=== PATIENT | female | born 1970 | race Caucasian/White ===

== ENCOUNTER → 2017-04-05 | Outpatient (CLI) | payer BC ==
--- NOTE | 2017-04-05 10:42 | REPMRS ---
Patient History The patient states she had a clinical breast exam in January 2017. Family history of colorectal cancer in maternal grandmother at age 50 or over. Digital Mammo Screening Bilat: April 05, 2017 - Exam #: [id number] Bilateral CC and MLO view(s) were taken. Technologist: Cheryl Stephen, Technologist Prior study comparison: April 02, 2016, bilateral digital mammo screening bilat performed at [facility]. March 19, 2015, bilateral digital mammo screening bilat performed at [facility]. February 06, 2014, bilateral digital mammo screening bilat performed at [facility]. FINDINGS: There are scattered fibroglandular densities. There is a moderate amount of residual fibroglandular tissue which is fairly symmetric. There is no interval development of dominant mass, architectural distortion, or clustered microcalcification typical of malignancy. There has been no change in the appearance of the mammogram from the prior studies. ASSESSMENT: BI-RADS/ACR category 1 mammogram. Negative. Recommendation Routine screening mammogram of both breasts in 1 year (for women over age 40). This mammogram was interpreted with the aid of an FDA-approved computer-aided dectection system. Electronically Signed By: Rishi Cartagena MD 04/05/17 [id number]
== END ==
LOC: M RAD 10:03
PROVIDERS: ATTEND Internal Medicine
DX: Z12.31 Encounter for screening mammogram for malignant neoplasm of breast (principal); Z80.3 Family history of malignant neoplasm of breast

== ENCOUNTER → 2018-04-25 | Outpatient (CLI) | payer BC | LOC: M RAD 08:26 | DX: Z12.31 Encounter for screening mammogram for malignant neoplasm of breast (principal); N60.31 Fibrosclerosis of right breast; N60.32 Fibrosclerosis of left breast | CPT/HCPCS: 77067 ==

== ENCOUNTER → 2018-11-15 | Outpatient (REF) | payer BC ==
[2018-11-18 00:09] LABS: ANTINUCLEAR ANTIBODIES DIRECT Negative (Negative)
== END ==
LOC: M LAB REF 12:42
PROVIDERS: ATTEND Internal Medicine
DX: I73.00 Raynaud's syndrome without gangrene (principal)

== ENCOUNTER → 2019-05-01 | Outpatient (CLI) | payer BC ==
--- NOTE | 2019-05-01 14:04 | REPMRS ---
Patient History The patient states she had a clinical breast exam in 2018. Family history of colorectal cancer at age 50 or over in maternal grandmother. Digital Mammo Screening Bilat: May 01, 2019 - Exam #: [id number] Bilateral CC and MLO view(s) were taken. Technologist: Velma Baker, Technologist Prior study comparison: April 25, 2018, bilateral digital mammo screening bilat performed at [facility]. April 05, 2017, bilateral digital mammo screening bilat performed at [facility]. April 02, 2016, bilateral digital mammo screening bilat performed at [facility]. FINDINGS: The breast tissue is heterogeneously dense. This may lower the sensitivity of mammography. There is a moderate amount of heterogeneously dense fibroglandular tissue which is fairly symmetric. There is no interval development of dominant mass, architectural distortion, or grouped microcalcification typical of malignancy. There has been no change in the appearance of the mammogram from the prior studies. 3-D tomosynthesis shows no additional findings. Assessment: BI-RADS/ACR category 1 mammogram. Negative Mammogram. Recommendation Routine screening mammogram of both breasts in 1 year (for women over age 40). This patient's Lifetime Breast Cancer RIsk is estimated at 10.8 %. This mammogram was interpreted with the aid of an FDA-approved computer-aided dectection system. Electronically Signed By: Rishi Cartagena MD 05/01/19 [id number]
== END ==
LOC: M RAD 11:27
PROVIDERS: ATTEND Internal Medicine
DX: Z12.31 Encounter for screening mammogram for malignant neoplasm of breast (principal)

== ENCOUNTER → 2020-02-18 | Outpatient (CLI) | payer BC ==
--- NOTE | 2020-02-18 13:50 | REP ---
DIAGNOSTIC MAMMOGRAM RIGHT BREAST WITH RIGHT BREAST ULTRASOUND: HISTORY: Palpable lump for 1 month upper outer quadrant right breast. No family history of breast cancer. Tyrer-Cuzick lifetime risk of breast cancer 10/6%. Moderate fibroglandular tissue is again seen in the right breast, with no change in the parenchymal pattern compared to prior studies. There is no new mass or architectural distortion. No clustered microcalcifications are seen. Real-time sonographic evaluation of the right breast performed in the upper outer quadrant posteriorly at the site of the palpable lump. No cystic or solid nodule is seen in this region. IMPRESSION: BIRADS 2: BI-RADS/ACR category 2 mammogram. Benign Findings. ACR 2 benign. Moderate fibroglandular tissue right breast. There is no mammographic evidence of mass and no sonographic evidence of mass at the site of the palpable lump upper outer quadrant right breast. A negative mammogram and ultrasound should not deter biopsy of there is a clinically suspicious palpable mass present. Clinical correlation and followup recommended. Recommend followup bilateral mammogram April 2020. Volpara density score is C. This mammogram was interpreted with the aid of an FDA-approved computer-aided detection system. A. Negative x-ray reports should not delay biopsy if a dominant or clinically suspicious mass is present. B. Four to eight percent of cancers are not identified by x-ray. C. Adenosis and dense breasts may obscure an underlying neoplasm. The patient states she/he had a clinical breast exam in January 2020. The patient letter being requested is M2.
== END ==
LOC: M WHC 10:27
PROVIDERS: ATTEND Internal Medicine
DX: N63.10 Unspecified lump in the right breast, unspecified quadrant (principal)
CPT/HCPCS: 76642; 77065; G0279

== ENCOUNTER → 2020-03-26 | Outpatient (CLI) | payer BC ==
--- NOTE | 2020-03-26 15:34 | REP ---
ULTRASOUND GUIDANCE FOR RIGHT BREAST BIOPSY: Ultrasound guidance provided for Dr. Lugo who performed ultrasound-guided biopsy of the 11-o'clock region of the right breast. Biopsy needle is seen on the images.
--- NOTE | 2020-03-26 15:35 | REP ---
POSTBIOPSY MAMMOGRAM RIGHT BREAST: Postbiopsy mammogram right breast performed in the axillary CC and ML projections, following ultrasound-guided biopsy of the right breast performed by Dr. Lugo. A metallic biopsy clip is seen far posteriorly in the upper outer quadrant of the right breast in the region of the axillary tail.
[2020-03-26 17:04] VITALS: BP 142/80
--- NOTE | 2020-04-06 14:17 | ROOPDOC ---
[facility] Report Of Operation Report of Operation DATE OF PROCEDURE: 03/26/20 PREPROCEDURE DIAGNOSES: Right breast mass and left nipple skin tag POSTPROCEDURE DIAGNOSES: Right breast mass and left nipple skin tag PROCEDURE: Ultrasound-guided biopsy of right breast mass and excisional biopsy of left nipple skin tag SURGEON: Gege Bahena ANESTHESIA: Local ESTIMATED BLOOD LOSS: Approximately 1 mL. COMPLICATIONS: No complications REMARKS: Postbiopsy clips seen in the right breast mammogram at the expected location DESCRIPTION OF PROCEDURE: Lidocaine 1% LOT [id number] Expiration 01/2023 Sodium Bicarbonate 8.4% LOT [id number] Expiration 02/2021 Hydromark clip LOT [id number] Expiration 10/2022 SHAPE 4 Bx device: BARD [id number] x10 cm LOT [id number] Expiration 10/2022 Informed consent was obtained. The most common risk and possible complications including bleeding, hematoma, bruising, infection, injury to surrounding structures were explained to the patient and she expressed understanding. Patient was placed on the bed in the supine position. Appropriate time out was done stating patients name, date of , and the procedure to be performed. Procedure was started with the right breast biopsy. The right breast was prepped and draped in the usual fashion. The palpation was used to confirm location of the lesion at 11:00 between 6.5 and 9 CFN radially located. The location of the lesion was previously confirmed by the patient and marked on the skin prior to cleaning of the breast. The ultrasound was used to monitor trajectory of the biopsy needle and to assure it is away from vital structures like lung. Plain Lidocaine 1% and 8.4% sodium bicarbonate 10:1 mix was used to anesthetize the skin, the biopsy site and tissues along the anticipated biopsy tract. Small skin incision was made with blade number 11. BARD Marquee 14G cannula with introducer ([id number]) was inserted through the incision and advanced under the ultrasound guidance to position immediately adjacent to the lesion. Next, the introducer was removed and BARD Marquee 14G biopsy device was places in the cannula. Pre-biopsy imaging, and post-biopsy imaging were captured. Five good core biopsies were taken at various levels of the lesion. Specimen was placed in formaldehyde, labeled with appropriate biopsy site and patients name, and sent to pathology for evaluation. Next, the biopsy device was withdrawn and a clip introducer was inserted into the biopsy site via the cannula. The SHAPE 4 Hydromark clip was deployed under sonographic guidance. Post-clip placement image was captured. Manual pressure over the biopsy cavity and tract was held after the clip introducer was withdrawn. No bleeding was noted upon removal of the pressure. SteriStips were placed over the incision site. At this point, our attention was shifter toward the left breast and the left nipple skin tag. Left breast was prepped and draped in the usual fashion. Plain Lidocaine 1% and 8.4% sodium bicarbonate 10:1 mix was used to anesthetize the skin at the left nipple skin tag. Blade number 15 was used to excise the left nipple skin tag. Specimen was placed in formaldehyde, labeled with appropriate biopsy site and patients name, and sent to pathology for evaluation. Pressure was held over the excision area as the nipple area is very vascular and some bleeding was noted. After 5 minutes of holding pressure. A bulk dressing was placed over the left nipple excision area and covered with Tegraderm. Next, patient was taken for the post biopsy right breast mammogram. Post-biopsy mammogram of the right breast was obtained and showed clip in expected position. An SONIA wrap was placed over the chest to provide compression to the right breast biopsy site and the left nipple excisional biopsy site. Patient tolerated procedure well. Discharge instructions were discussed with the patient and she expressed understanding. GEGE BAHENA DO Apr 06, 2020 14:01
== END ==
LOC: M WHCPRO 09:50
PROVIDERS: ATTEND Surgery
DX: N63.11 Unspecified lump in the right breast, upper outer quadrant (principal); Q83.9 Congenital malformation of breast, unspecified

== ENCOUNTER → 2020-04-01 | Outpatient (REF) | payer BC ==
[2020-04-01 13:10] LABS: BLOOD UREA NITROGEN 15 MG/DL (7-18); CALCIUM LEVEL 8.9 MG/DL (8.5-10.1); CARBON DIOXIDE LEVEL 30 MEQ/L (21-32); CHLORIDE LEVEL 102 MEQ/L (98-107); CREATININE FOR GFR 0.78 MG/DL (0.55-1.30); GLOMERULAR FILTRATION RATE > 60.0 (>51); GLUCOSE, FASTING 198 MG/DL (70-100); POTASSIUM SERUM 4.4 MEQ/L (3.5-5.1); SODIUM LEVEL 138 MEQ/L (136-145)
== END ==
LOC: M PLALAB 10:24
PROVIDERS: ATTEND Surgery
DX: N63.10 Unspecified lump in the right breast, unspecified quadrant (principal)

== ENCOUNTER → 2020-04-25 | Outpatient (CLI) | payer BC ==
[~2020-04-25] MED LIST: PROHANCE 279.3MG/ML 15ML VIAL As Ordered ONE
--- NOTE | 2020-06-06 11:55 | REP ---
BILATERAL BREAST MRI STUDY WITHOUT AND WITH IV GADOLINIUM HISTORY: Dense breast tissue. Right breast mass. Patient presented with palpable lump of upper-outer quadrant right breast, for which ultrasound-guided needle biopsy was done. Biopsy result was fibrofatty tissue, benign. COMPARISON: Diagnostic mammography dated 03/26/2020 and 02/18/2020, reviewed. Comparison focused upper-outer quadrant right breast sonography 02/18/2020. TECHNIQUE: Gadolinium enhancement dose, 15 mL of intravenous ProHance. MRI FINDINGS: There is a erntjiax-kn-whiofo pattern of fibroglandular tissue bilaterally. This is largely symmetric. There is no evidence of axillary lymphadenopathy. No large breast cystic change is seen. No evidence of internal mammary adenopathy seen. There is a mild pattern of background parenchymal enhancement. On dynamically acquired sequential post-contrast images, there is an irregular, somewhat spiculated-shaped area of contrast enhancement in the 6 o'clock position of the right breast. This is not the area where the patient had recent biopsy. This area shows T2 hyperintensity. It is irregular in shape and approximately 14 mm in greatest diameter. It is felt to correspond with a somewhat nodular area of density in the inferior aspect of the recent right breast mammography. There is a single focal microcalcification within this nodular density on mammography from 03/26/2020. On the computer-aided detection system review, this lesion does not enhance above threshold, but its morphology is considered suspicious. No other area of contrast enhancement and/or wash out is seen in either breast on dynamically acquired post contrast images. No suspicious morphologic abnormality is seen in the upper-outer quadrant on the right in the 11 o'clock position where biopsy was performed. The recently placed HydroMARK needle biopsy marker clip is seen far posteriorly in the right axillary soft tissues superiorly. IMPRESSION: BI-RADS category 4: Suspicious right breast MR imaging. There is a spiculated area of tissue 13-14 mm in diameter in this location which enhances, but below threshold for DynaCAD characterization. A mammographic correlate is seen visible in retrospect on recent mammography. Histologic sampling is recommended. This could be accomplished via second look ultrasound if desired or stereotactic needle biopsy. [facility]
== END ==
LOC: M RAD 15:00
PROVIDERS: ATTEND Surgery
DX: N63.10 Unspecified lump in the right breast, unspecified quadrant (principal); R92.2 Inconclusive mammogram
CPT/HCPCS: A9576; C8908

== ENCOUNTER → 2020-05-22 | Outpatient (CLI) | payer BC ==
--- NOTE | 2020-06-18 07:34 | REP ---
RIGHT BREAST ULTRASOUND HISTORY: Correlate with MRI abnormality. TECHNIQUE: Real-time sonographic evaluation of the right breast is performed with special attention paid to the 6 o'clock region. On the MRI of the breast performed 04/25/2020, a spiculated area was noted at 6 o'clock in the right breast. This has extremely ill-defined margins. Diameter was noted to be approximately 1.4 cm maximally. FINDINGS: Ultrasound shows, at the 6 o'clock position, two ill-defined areas of adjacent hypoechoic tissue versus a bilobed area with intervening hyperechoic echotexture. The two ill-defined hypoechoic areas measure 1.1 x 1.1 x 1.7 cm and 1.2 x 1.1 x 1.5 cm. I suspect this is at the site of the abnormality seen on the MRI. IMPRESSION: ACR 4 suspicious. At the 6 o'clock position of the right breast, correlating with the MRI of 04/25/2020, there is an area of abnormal echotexture with two adjacent hypoechoic components with some mild intervening hyperechoic echogenicity. Recommend ultrasound-guided biopsy of this area of abnormal echotexture, which has an ill-defined and somewhat nodular appearance as does the MRI abnormality. Recommend postprocedure mammogram following clip placement. MTDD
== END ==
LOC: M RAD 14:19
PROVIDERS: ATTEND Surgery
DX: R92.2 Inconclusive mammogram (principal)

== ENCOUNTER → 2020-06-12 | Outpatient (CLI) | payer BC ==
[2020-06-12 13:51] VITALS: BP 112/60
--- NOTE | 2020-06-19 12:45 | REP ---
ULTRASOUND-GUIDED RIGHT BREAST BIOPSY The procedure was performed under the general supervision of Dr. Egan. CONSENT: The risks and benefits of the procedure were explained to the patient and informed consent was obtained. DESCRIPTION OF PROCEDURE: The right breast nodule was localized using ultrasound guidance. The skin was prepped and draped in a sterile fashion. 1% Lidocaine was used as a local anesthetic. Using ultrasound guidance, a 14-gauge coaxial needle biopsy system was inserted and advanced into the nodule. Six core biopsy samples were obtained and sent to the lab. A marker clip was placed at the biopsy site. The patient tolerated the procedure well, and there were no immediate complications. After the appropriate amount of monitoring convalescence, the patient was discharged MTDD
--- NOTE | 2020-06-19 12:45 | REP ---
POSTBIOPSY MAMMOGRAM OF THE RIGHT BREAST TECHNIQUE: ML and CC views of the right breast are performed following ultrasound-guided biopsy of the 6 o'clock region of the right breast. A breast MRI of 04/25/2020, showed a nodular area of enhancement in the 6 o'clock region. Second-look ultrasound 05/22/2020, showed a bilobed hypoechoic nodular area at 6 o'clock in the right breast, which was felt to correspond to the abnormality on the MRI. Comparing to a prior mammogram 02/18/2020, the area was felt to be observed at the 6 o'clock position of the right breast. FINDINGS: Metallic clip is visualized at the 6 o'clock region of the right breast. It is located within the area identified on the 02/18/2020 mammogram, which was felt to correspond to the abnormality on the MRI and ultrasound. The clip appears to be in appropriate position. LILIANA
== END ==
LOC: M WHCPRO 11:04
PROVIDERS: ATTEND Surgery
DX: N60.21 Fibroadenosis of right breast (principal)

== ENCOUNTER → 2020-06-24 | Outpatient (CLI) | payer BC ==
--- NOTE | 2020-06-24 13:10 | REPMRS ---
Patient History Family history of colorectal cancer at age 50 or over in maternal grandmother. Benign US guided breast biopsy. of the right breast, June 12, 2020. Benign US guided breast biopsy. of the right breast, March 26, 2020. 3D TOMOSYNTHESIS WAS PERFORMED. The Rico Bradley lifetime risk for breast cancer is 10.6%. VOLPARA DENSITY C. Digital Woman Screen Mammo: June 24, 2020 - Exam #: [id number] Bilateral CC and MLO view(s) were taken. Technologist: Velma Baker, Technologist Prior study comparison: March 26, 2020, right breast diagnostic unilateral mammo performed at [facility]. February 18, 2020, right breast diagnostic unilateral mammo performed at [facility]. FINDINGS: The breast tissue is heterogeneously dense. This may lower the sensitivity of mammography. There has been no change in the appearance of the mammogram from the prior studies. There is a moderate amount of residual fibroglandular tissue. There is no interval development of dominant mass, areas of architectural distortion, or clustered microcalcification typical of malignancy. No significant changes when compared with prior studies. Assessment: BI-RADS/ACR category 1 mammogram. Negative Mammogram. Recommendation Routine screening mammogram in 1 year (for women over age 40). This mammogram was interpreted with the aid of an FDA-approved computer-aided dectection system. Electronically Signed By: David Egan MD 06/24/20 [id number]
== END ==
LOC: M WHC 10:24
PROVIDERS: ATTEND Internal Medicine
DX: Z12.31 Encounter for screening mammogram for malignant neoplasm of breast (principal); Z86.018 Personal history of other benign neoplasm

== ENCOUNTER → 2021-01-23 | Outpatient (CLI) | payer BC ==
--- NOTE | 2021-01-23 15:22 | REP ---
INDICATION: HIGH RISK FOR BREAST CA. Biopsy right breast abnormality 06/13/2020, pathology apocrine metaplasia and ductal hyperplasia. COMPARISON: MRI 04/25/2020. TECHNIQUE: Three Bebe MRI imaging was performed with a dedicated breast coil. Axial, coronal, and sagittal T1 and T2 weighted scans were obtained with and without fat saturation in the usual fashion. The study includes dynamically acquired post gadolinium-enhanced imaging with image subtraction. Maximum intensity projection and multi planar reformation imaging is included as well. This study is interpreted with the aid of SolarGreen, an FDA approved computer aided detection (CAD) software program, on a dedicated breast MRI workstation. The gadolinium enhancement dose is 15 mL of intravenous ProHance. FINDINGS: [id number]-yr-tbvvfw parenchymal pattern is again seen symmetrically bilaterally. Once again there is no evidence of axillary adenopathy. There is a right axillary biopsy clip noted. A biopsy clip is noted in the inferolateral right breast. No significant cystic change is seen in either breast. There is mild background parenchymal enhancement bilaterally. At the site of the previously noted irregular, somewhat spiculated enhancement at 6 o'clock right breast, there is only a small 4 mm nodular focus of enhancement, which is hyperintense on T2 weighted images. This appears to correspond to a small focus which was present previously at the anterior aspect of the previously noted enhancing abnormality. The remaining area of irregular enhancement more posteriorly is no longer visualized. No new area of abnormal enhancement is seen. There is no other suspicious enhancing mass or morphologic abnormality. IMPRESSION: BI-RADS category 2 benign bilateral breast MRI. Small 4 mm focus of enhancement, which is hyperintense on T2 weighted images, at the site of the previously noted area of irregular somewhat suspicious enhancement. This 4 mm focus is stable. The remaining area of abnormal enhancement is no longer visualized. This area was biopsied with no evidence of malignancy. No new suspicious mass or morphologic abnormality. <Electronically signed by David Egan > 01/23/21 [id number]
== END ==
LOC: M RAD 13:17
PROVIDERS: ATTEND Surgery
DX: R92.8 Other abnormal and inconclusive findings on diagnostic imaging of breast (principal); Z91.89 Other specified personal risk factors, not elsewhere classified
CPT/HCPCS: A9576; C8908

== ENCOUNTER → 2021-02-04 | Outpatient (CLI) | payer BC ==
--- NOTE | 2021-02-04 17:26 | REP ---
INDICATION: N63.20 LEFT BREAST MASS. COMPARISON: Comparison mammography June 24, 2020. Comparison breast MRI study January 23, 2021. TECHNIQUE: Craniocaudal, mediolateral oblique, and mediolateral views of the left breast are obtained with 3D tomography. Magnified focal spot-compression images are made in the craniocaudal and mediolateral oblique projection. Targeted left breast sonography is performed. The skin was marked by the patient in the site where she feels a palpable abnormality and where referring clinician finds of mass. 3 o'clock position left breast. This mammogram was interpreted with the aid of an FDA-approved computer-aided detection system. FINDINGS: Breast parenchyma remains heterogeneously dense in a pattern which may inhibit the sensitivity of mammography. Breast parenchyma is unchanged and unremarkable in the left breast when compared with June 24, 2020 study. 3D tomography shows no evidence of mass, architectural distortion, or worrisome skin change. No microcalcification is observed mammographically. No suspicious mammographic finding. The Volpara volumetric breast density pattern is C. Targeted ultrasound: Targeted left breast sonography is performed. In the 3 o'clock position 5 cm from the needle there is a 7 x 3 x 4 mm very subtly hypoechoic area with a somewhat triangular shape. This is seen in the area of the palpable lump. This is most likely normal breast parenchyma. The concurrently performed and negative breast MRI imaging is reassuring. IMPRESSION: BIRADS/ACR category 3 probably benign left breast sonographic findings. Negative left breast mammography. This patient's Tyrer-Cuzick lifetime breast cancer risk assessment score is 10.4%. RECOMMENDATION: Repeat left breast targeted sonography recommended in 6 months time.. The patient letter being requested is M 3. <Electronically signed by Rishi Cartagena > 02/04/21 [id number]
== END ==
LOC: M WHC 14:47
PROVIDERS: ATTEND Surgery
DX: N63.20 Unspecified lump in the left breast, unspecified quadrant (principal)
CPT/HCPCS: 76642; 77065; G0279

== ENCOUNTER → 2021-06-26 | Outpatient (CLI) | payer BC ==
--- NOTE | 2021-06-26 10:29 | REP ---
INDICATION: CAT 3 F/U AT HIGH RISK FOR BREAST CA; CAT 3 F/U LEFT BREAST AT HIGH RISK FOR BREAST CA. COMPARISON: Comparison mammography June 12, 2020 and February 04, 2021. June 24, 2020 prior left breast mammography is also reviewed. Comparison left breast sonography is reviewed from February 04, 2021. TECHNIQUE: Bilateral CC and MLO) view(s) were taken. 3D tomography is utilized. Targeted left breast sonography is performed. FINDINGS: Breast parenchyma is again noted to be dense in a pattern which may inhibit the sensitivity of mammography. There are 2 needle biopsy marker clips again noted in the right breast. No dominant density is seen on either side mammographically. No architectural distortion, worrisome skin change, or microcalcification is observed. No change from comparison mammography. The Volpara volumetric breast density pattern is D. Repeat targeted left breast ultrasound: Targeted repeat left breast sonography 3 o'clock position again demonstrates a 0.7 x 0.6 x 0.4 cm slightly hypoechoic area with its long axis parallel to the skin completely unchanged from its appearance on the February 04, 2021 study. It has a low shear wave elastography number, 12 K PA.. IMPRESSION: BIRADS/ACR category 1 negative mammogram. This patient's Tyrer-Cuzick lifetime breast cancer risk assessment score is 10.4%. This mammogram was interpreted with the aid of an FDA-approved computer-aided detection system. The patient states she had a clinical breast exam in December of 2020. The patient letter being requested is M 3 dense. RECOMMENDATION: Repeat targeted left breast sonography recommended in 6 months. Repeat screening mammography recommended 1 year (for women over 40). <Electronically signed by Rishi Cartagena > 06/26/21 [id number]
== END ==
LOC: M WHC 08:52
PROVIDERS: ATTEND Surgery
DX: R92.8 Other abnormal and inconclusive findings on diagnostic imaging of breast (principal); Z91.89 Other specified personal risk factors, not elsewhere classified
CPT/HCPCS: 76642; 77066; G0279

== ENCOUNTER → 2022-01-19 | Outpatient (CLI) | payer BC ==
[2022-01-19 13:32] LABS: BLOOD UREA NITROGEN 16 MG/DL (7-18); CALCIUM LEVEL 10.3 MG/DL (8.5-10.1); CARBON DIOXIDE LEVEL 32 MEQ/L (21-32); CHLORIDE LEVEL 102 MEQ/L (98-107); CREATININE FOR GFR 0.72 MG/DL (0.55-1.30); GLOMERULAR FILTRATION RATE > 60.0 (>51); GLUCOSE, FASTING 128 MG/DL (70-100); POTASSIUM SERUM 4.5 MEQ/L (3.5-5.1); SODIUM LEVEL 141 MEQ/L (136-145)
== END ==
LOC: M PLALAB 08:52
PROVIDERS: ATTEND Surgery
DX: Z91.89 Other specified personal risk factors, not elsewhere classified (principal); Z87.898 Personal history of other specified conditions

== ENCOUNTER → 2022-01-29 | Outpatient (CLI) | payer BC ==
[~2022-01-29] MED LIST changes: -PROHANCE 279.3MG/ML 15ML VIAL As Ordered ONE; +PROHANCE 279.3MG/ML 15ML VIAL ONE
== END ==
LOC: M PLAIMG 14:22
PROVIDERS: ATTEND Surgery
DX: Z87.898 Personal history of other specified conditions (principal); Z91.89 Other specified personal risk factors, not elsewhere classified
CPT/HCPCS: A9576; C8908

== ENCOUNTER → 2022-02-10 | Outpatient (CLI) | payer BC ==
[~2022-02-10] MED LIST changes: +ASPI81CH33 PO; +CALTTAB6 PO; +HUMA100I3 SC; +LANTINJ4 SC; +MAGN400C2 PO; +METF10004 PO; -PROHANCE 279.3MG/ML 15ML VIAL ONE; +VICT18IN SC; +ZOCO20TA PO
[2022-02-10 14:07] VITALS: BP 124/74
== END ==
LOC: M WHCPRO 12:27
PROVIDERS: ATTEND Surgery
DX: R92.8 Other abnormal and inconclusive findings on diagnostic imaging of breast (principal); N63.21 Unspecified lump in the left breast, upper outer quadrant
CPT/HCPCS: 19083; 77065; 88305; G0279

== ENCOUNTER → 2022-08-16 | Outpatient (CLI) | payer BC ==
[~2022-08-16] MED LIST changes: +SIMV-253 PO; -ZOCO20TA PO
== END ==
LOC: M WHC 11:03
PROVIDERS: ATTEND Nurse Practitioner Women's Health
DX: D24.2 Benign neoplasm of left breast (principal); Z91.89 Other specified personal risk factors, not elsewhere classified; Z87.898 Personal history of other specified conditions
CPT/HCPCS: 76642; 77066; G0279

== ENCOUNTER → 2022-09-23 | Outpatient (REF) | payer BC | LOC: M PLALAB 13:13 | PROVIDERS: ATTEND Obstetrics & Gynecology | DX: Z01.419 Encounter for gynecological examination (general) (routine) without abnormal findings (principal) ==

== ENCOUNTER → 2023-02-01 | Outpatient (CLI) | payer BC ==
[2023-02-01 13:49] LABS: BLOOD UREA NITROGEN 11 MG/DL (9-23); CALCIUM LEVEL 9.5 MG/DL (8.5-10.1); CARBON DIOXIDE LEVEL 32 MMOL/L (20-31); CHLORIDE LEVEL 102 MMOL/L (98-107); CREATININE FOR GFR 0.85 MG/DL (0.55-1.30); GLOMERULAR FILTRATION RATE > 60.0 (>51); GLUCOSE, FASTING 86 MG/DL (60-100); POTASSIUM SERUM 4.3 MMOL/L (3.5-5.1); SODIUM LEVEL 143 MMOL/L (136-145)
== END ==
LOC: M PLALAB 09:58
PROVIDERS: ATTEND Nurse Practitioner Women's Health
DX: Z01.818 Encounter for other preprocedural examination (principal)

== ENCOUNTER → 2023-02-11 | Outpatient (CLI) | payer BC ==
[~2023-02-11] MED LIST changes: +PROHANCE 279.3MG/ML 15ML VIAL As Ordered ONE
== END ==
LOC: M RAD 15:28
PROVIDERS: ATTEND Nurse Practitioner Women's Health
DX: Z91.89 Other specified personal risk factors, not elsewhere classified (principal); R92.2 Inconclusive mammogram; Z87.898 Personal history of other specified conditions

== ENCOUNTER → 2023-08-16 | Outpatient (CLI) | payer BC ==
[~2023-08-16] MED LIST changes: -PROHANCE 279.3MG/ML 15ML VIAL As Ordered ONE
== END ==
LOC: M WHC 09:07
PROVIDERS: ATTEND Nurse Practitioner Women's Health
DX: Z12.31 Encounter for screening mammogram for malignant neoplasm of breast (principal); Z85.3 Personal history of malignant neoplasm of breast

== ENCOUNTER → 2024-03-21 | Outpatient (CLI) | payer OTHER ==
[~2024-03-21] MED LIST changes: +PROHANCE 279.3MG/ML 15ML VIAL ONE
== END ==
LOC: M PLAIMG 08:43
PROVIDERS: ATTEND Nurse Practitioner Women's Health
DX: Z87.898 Personal history of other specified conditions (principal)
CPT/HCPCS: A9576; C8908

== ENCOUNTER 2024-10-12 09:10 | Emergency (ER) | payer OTHER ==
[~2024-10-12] VITALS: Ht 175.3 cm; Wt 65.9 kg
[~2024-10-12 09:10] MED LIST changes: -AMOX500C PO; -AMOX500T PO; -TIRZ7.5P SQ; -VENTAER INH
[2024-10-12] MEDS: NS (Normal Saline) 0.9% 1,000 ML IV ONE (09:35)
[2024-10-12] MEDS ORDERED: TIRZ7.5P SQ (10:02)
[2024-10-12] MEDS: cefTRIAXone SOD 1 GM in DEXTROSE 5% (D5W) ADV/MINI-BAG 50 ML IV ONE (10:31)
[2024-10-12] MEDS: DOXYCYCLINE HYCLATE 100MG TABLET PO ONE (10:31)
[2024-10-12] MEDS ORDERED: AMOX500T PO (11:22)
[2024-10-12] MEDS ORDERED: VENTAER INH (11:29)
[2024-10-12] MEDS: ALBUTEROL SULFATE 2.5MG/0.5ML INH NEB SOLN INH PRN (11:50)
[2024-10-12 12:05] VITALS: BP 104/56; TEMP 98.7; O2SAT 99
== END 2024-10-12 12:14 | disposition home or self-care (01) ==
LOC: M ED 09:10
DX: J09.X2 Influenza due to identified novel influenza A virus with other respiratory manifestations (principal); J18.1 Lobar pneumonia, unspecified organism; E11.9 Type 2 diabetes mellitus without complications; Z88.2 Allergy status to sulfonamides; Z88.8 Allergy status to other drugs, medicaments and biological substances; Z91.048 Other nonmedicinal substance allergy status; Z79.51 Long term (current) use of inhaled steroids; Z79.2 Long term (current) use of antibiotics; Z79.1 Long term (current) use of non-steroidal anti-inflammatories (NSAID); Z79.84 Long term (current) use of oral hypoglycemic drugs; Z79.899 Other long term (current) drug therapy
CPT/HCPCS: 71046; 94640; 96361; 96365; 96366; 99284; J0696

== ENCOUNTER → 2024-10-12 | Outpatient (CLI) | payer OTHER ==
[~2024-10-12] MED LIST changes: +AMOX500C PO; +AMOX500T PO; -PROHANCE 279.3MG/ML 15ML VIAL ONE; +TIRZ7.5P SQ; +VENTAER INH
== END ==
LOC: M LAB 08:04
PROVIDERS: ATTEND Emergency Medicine
DX: J06.9 Acute upper respiratory infection, unspecified (principal); R06.00 Dyspnea, unspecified

== ENCOUNTER 2024-10-14 13:31 | Inpatient (IN) | payer OTHER ==
[~2024-10-14] VITALS: Ht 175.3 cm; Wt 73.0 kg
[~2024-10-14 13:31] MED LIST changes: +AMOX500T PO; +TIRZ7.5P SQ; +VENTAER INH
[2024-10-14 14:08] LABS: VENOUS BASE EXCESS -0.2 (-2.0-2.0); VENOUS HCO3 25.5 MMOL/L (23.0-27.0); VENOUS O2 SATURATION 60.9 % (60.0-80.0); VENOUS PARTIAL PRESSURE CO2 45.8 mmHg (38.0-50.0); VENOUS PARTIAL PRESSURE O2 30.3 mmHg (30.0-50.0); VENOUS PH 7.364 UNITS (7.330-7.430); VENOUS STANDARD HCO3 23.6 MMOL/L; VENOUS TOTAL CO2 26.9 MMOL/L (24.0-28.0)
[2024-10-14] MEDS: NS (Normal Saline) 0.9% 1,000 ML IV ONE (14:09)
[2024-10-14] MEDS: PIPERACILLIN/TAZOBACTAM SOD 4.5 GM in DEXTROSE 5% (D5W) ADV/MINI-BAG 50 ML IV ONE (14:15)
[2024-10-14 14:19] LABS: BASO % 0.2 % (0.0-1.0); EOS % 0.2 % (0.0-3.0); HEMATOCRIT 34.7 % (36.0-47.0); HEMOGLOBIN 11.7 g/dl (12.0-15.5); LYMPH # 0.6 10^3/uL (1.5-5.0); MEAN CORPUSCULAR HEMOGLOBIN 32.1 pg (27.0-33.0); MEAN CORPUSCULAR HGB CONC 33.7 g/dl (32.0-36.5); MEAN CORPUSCULAR VOLUME 95.3 fl (80.0-96.0); MONO # 0.6 10^3/uL (0.0-0.8); MONO % 9.3 % (2.0-8.0); NEUTROPHILS # 4.7 10^3/uL (1.5-8.5); NEUTROPHILS % 79.8 % (36.0-66.0); PLATELET COUNT, AUTOMATED 196 10^3/uL (150-450); RED BLOOD COUNT 3.64 10^6/uL (4.00-5.40); WHITE BLOOD COUNT 5.9 10^3/uL (4.0-10.0)
[2024-10-14] MEDS: ALBUTEROL SULFATE 2.5MG/0.5ML INH NEB SOLN INH ONE (14:20)
[2024-10-14] MEDS: [UNRECOGNIZED DRUG - OTHER] IV ONE (14:50)
[2024-10-14] MEDS: NS 0.9% IV ONE (14:50)
[2024-10-14] MEDS: KETOROLAC 30 MG/ML 1ML VIAL IV ONE (14:50)
[2024-10-14 14:51] LABS: ACETONE/KETONE 0.16 MMOL/L (0.02-0.27); ALBUMIN 2.5 G/DL (3.2-5.2); ALKALINE PHOSPHATASE 69 U/L (35-104); ALT/SGPT 14 U/L (7.0-40); AST/SGOT 12 U/L (<34); BILIRUBIN,DIRECT 0.2 MG/DL (<0.4); BILIRUBIN,TOTAL 0.4 MG/DL (0.3-1.2); BLOOD UREA NITROGEN 11 MG/DL (9-23); CALCIUM LEVEL 8.8 MG/DL (8.5-10.1); CARBON DIOXIDE LEVEL 25 MMOL/L (20-31); CHLORIDE LEVEL 99 MMOL/L (98-107); CREATININE FOR GFR 0.65 MG/DL (0.55-1.30); GLOMERULAR FILTRATION RATE > 60.0 (>51); GLUCOSE, FASTING 332 MG/DL (60-100); MAGNESIUM LEVEL 1.5 MG/DL (1.8-2.4); SODIUM LEVEL 136 MMOL/L (136-145); TOTAL PROTEIN 5.6 G/DL (5.7-8.2)
[2024-10-14] MEDS: ACETAMINOPHEN 325 MG TAB PO ONE (14:51)
[2024-10-14 14:53] LABS: THYROID STIMULATING HORMONE 1.108 uIU/ML (0.55-4.78)
[2024-10-14 15:02] LABS: OSMOLALITY SERUM 290 MOSM/KG (275-295)
[2024-10-14 15:04] LABS: PROCALCITONIN >50.00 ng/ml
[2024-10-14 15:21] LABS: HEMOGLOBIN A1c 7.4 % (4.0-6.0)
[2024-10-14] MEDS: VANCOMYCIN HCL 1,250 MG, VIAL MATE ADAPTER 1 EACH in NS 250 ML IV ONE (16:02)
[2024-10-14] MEDS ORDERED: GLUCAGON INJ 1MG VIAL SC PRN (16:15)
[2024-10-14] MEDS ORDERED: DEXTROSE 50% 50ML SYRINGE IV PRN (16:15)
[2024-10-14] MEDS ORDERED: GLUCOSE 4 GM CHEW PO PRN (16:15)
[2024-10-14] MEDS ORDERED: MOM 30ML SUSPENSION UDC PO PRN (16:15)
[2024-10-14] MEDS ORDERED: MAALOX 30 ML SUSP *UDC PO PRN (16:15)
[2024-10-14] MEDS ORDERED: BISACODYL 10MG SUPP PR PRN (16:50)
[2024-10-14] MEDS ORDERED: PERCOCET 5MG/325MG TAB PO PRN (16:50)
[2024-10-14] MEDS ORDERED: LEVALBUTEROL 1.25MG 0.5ML CONCENTRATE NEB NEB PRN (16:50)
[2024-10-14 17:02] VITALS: BP 128/59; TEMP 100.6; O2SAT 95
[2024-10-14] MEDS ORDERED: VENTAER INH (17:04)
[2024-10-14] MEDS ORDERED: AMOX500C PO (17:04)
[2024-10-14] MEDS ORDERED: HOME MED LIST COMPLETE! XX SCH (17:05)
[2024-10-14] MEDS: MAG SULF 1GM/100ML (MAG RUN) 1 GM in IV 1 EA IV SCH (17:36)
[2024-10-14] MEDS: NS (Normal Saline) 0.9% 1,000 ML IV SCH (17:38)
[2024-10-14] MEDS: LACTOBACILLUS ACIDOPHILUS CAP (BACID) PO SCH (17:38)
[2024-10-14] MEDS: AZITHROMYCIN INJ 500 MG, VIAL MATE ADAPTER 1 EACH in NS 250 ML IV SCH (18:35)
[2024-10-14] MEDS: INSULIN LISPRO (NovoLOG) PER UNIT SC SCH ×2 (18:35→20:59)
[2024-10-14 18:44] LABS: IRON (FE) < 5 UG/DL (50-170); PERCENT SATURATION 2.3 % (13.2-45.0); TOTAL IRON BINDING CAPACITY 214 UG/DL (250-425)
[2024-10-14 18:45] LABS: C REACTIVE PROTEIN QUANTITATIV 21.33 MG/DL (<1.0)
[2024-10-14 18:47] LABS: FERRITIN 160.6 NG/ML (7.3-270.7); VITAMIN B12 LEVEL 666 PG/ML (211-911)
[2024-10-14 18:50] VITALS: BP 134/63; TEMP 100.7; O2SAT 96
[2024-10-14 18:50] LABS: FOLATE 9.67 NG/ML (>5.4)
[2024-10-14] MEDS: LEVALBUTEROL 1.25MG 0.5ML CONCENTRATE NEB NEB SCH (19:01)
[2024-10-14] MEDS: SIMVASTATIN 20 MG TAB PO SCH (20:27)
[2024-10-14] MEDS: DOCUSATE SODIUM 100MG CAPSULE PO SCH (20:27)
[2024-10-14] MEDS: MAGNESIUM OXIDE 400MG TAB (MAG-OX) PO SCH (20:28)
[2024-10-14] MEDS: ONDANSETRON 4MG 2ML VIAL IV PRN (20:28)
[2024-10-14] MEDS: guaiFENesin ER TABLET 600 MG TAB PO SCH (20:28)
[2024-10-14] MEDS: PIPERACILLIN/TAZOBACTAM SOD 3.375 GM in DEXTROSE 5% (D5W) ADV/MINI-BAG 50 ML IV SCH (20:28)
[2024-10-14] MEDS: KETOROLAC 30 MG/ML 1ML VIAL IV PRN (22:13)
[2024-10-14 23:12] VITALS: BP 118/57; TEMP 101.5; O2SAT 92
[2024-10-14] MEDS: ACETAMINOPHEN 325 MG TAB PO PRN (23:27)
[2024-10-15] MEDS: VANCOMYCIN HCL 1,000 MG, VIAL MATE ADAPTER 1 EACH in NS 250 ML IV SCH ×2 (00:46→15:47)
[2024-10-15 03:22] VITALS: BP 121/59; TEMP 100.1; O2SAT 92
[2024-10-15 08:26] LABS: BASO % 0.2 % (0.0-1.0); EOS % 0.3 % (0.0-3.0); HEMATOCRIT 32.5 % (36.0-47.0); HEMOGLOBIN 10.8 g/dl (12.0-15.5); LYMPH # 1.5 10^3/uL (1.5-5.0); LYMPH % 25.7 % (24.0-44.0); MEAN CORPUSCULAR HEMOGLOBIN 31.5 pg (27.0-33.0); MEAN CORPUSCULAR HGB CONC 33.2 g/dl (32.0-36.5); MEAN CORPUSCULAR VOLUME 94.8 fl (80.0-96.0); MONO # 0.9 10^3/uL (0.0-0.8); MONO % 14.5 % (2.0-8.0); NEUTROPHILS # 3.5 10^3/uL (1.5-8.5); NEUTROPHILS % 58.6 % (36.0-66.0); PLATELET COUNT, AUTOMATED 204 10^3/uL (150-450); RED BLOOD COUNT 3.43 10^6/uL (4.00-5.40)
[2024-10-15 08:50] LABS: C REACTIVE PROTEIN QUANTITATIV 21.64 MG/DL (<1.0)
[2024-10-15 08:51] LABS: ALBUMIN 2.3 G/DL (3.2-5.2); ALKALINE PHOSPHATASE 65 U/L (35-104); ALT/SGPT 12 U/L (7.0-40); AST/SGOT 12 U/L (<34); BILIRUBIN,TOTAL 0.4 MG/DL (0.3-1.2); BLOOD UREA NITROGEN 9 MG/DL (9-23); CALCIUM LEVEL 8.3 MG/DL (8.5-10.1); CARBON DIOXIDE LEVEL 21 MMOL/L (20-31); CHLORIDE LEVEL 109 MMOL/L (98-107); CREATININE FOR GFR 0.61 MG/DL (0.55-1.30); GLOMERULAR FILTRATION RATE > 60.0 (>51); GLUCOSE, FASTING 210 MG/DL (60-100); MAGNESIUM LEVEL 1.5 MG/DL (1.8-2.4); SODIUM LEVEL 139 MMOL/L (136-145); TOTAL PROTEIN 5.1 G/DL (5.7-8.2)
[2024-10-15] MEDS: ENOXAPARIN 40MG/0.4ML SYRINGE (J1650 PER 10MG) SC SCH (08:58)
[2024-10-15] MEDS: LEVEMIR (INSULIN DETEMIR) 1 UNITS/0.01ML SC SCH (08:58)
[2024-10-15] MEDS: ASPIRIN 81MG CHEW TABLET PO SCH (08:59)
[2024-10-15] MEDS: PANTOPRAZOLE 40MG TAB (PROTONIX) PO SCH (09:00)
[2024-10-15] MEDS: MAG SULF 1GM/100ML (MAG RUN) 1 GM in IV 1 EA IV SCH (10:29)
[2024-10-15 12:09] VITALS: BP 143/66; TEMP 101.5; O2SAT 97
[2024-10-15] MEDS ORDERED: FERRIC CARBOXYMALTOSE INJ 750 MG, VIAL MATE ADAPTER 1 EACH in NS 100 ML IV ONE (13:30)
[2024-10-15] MEDS: PIPERACILLIN/TAZOBACTAM SOD 4.5 GM in DEXTROSE 5% (D5W) ADV/MINI-BAG 50 ML IV SCH (14:32)
[2024-10-15 14:53] LABS: IMMUNOGLOBULIN G 334 MG/DL (650-1600)
[2024-10-15 14:54] LABS: IMMUNOGLOBULIN M 48.6 MG/DL (50-300)
[2024-10-15 16:34] VITALS: BP 134/60; TEMP 100; O2SAT 91
[2024-10-15] MEDS: AZITHROMYCIN 250MG TABLET PO SCH (18:07)
[2024-10-15 20:14] VITALS: BP 157/67; TEMP 101.4; O2SAT 93
[2024-10-15 23:37] VITALS: BP 122/56; TEMP 99.9; O2SAT 92
[2024-10-16] VITALS (7 sets, daily range): BP systolic 124–153; BP diastolic 56–68; TEMP 98.5–102.3; O2SAT 92–96
[2024-10-16 08:10] LABS: BASO % 0.2 % (0.0-1.0); EOS % 0.3 % (0.0-3.0); HEMATOCRIT 30.8 % (36.0-47.0); HEMOGLOBIN 10.5 g/dl (12.0-15.5); LYMPH # 1.4 10^3/uL (1.5-5.0); LYMPH % 24.6 % (24.0-44.0); MEAN CORPUSCULAR HEMOGLOBIN 31.5 pg (27.0-33.0); MEAN CORPUSCULAR HGB CONC 34.1 g/dl (32.0-36.5); MEAN CORPUSCULAR VOLUME 92.5 fl (80.0-96.0); MONO # 0.9 10^3/uL (0.0-0.8); MONO % 15.4 % (2.0-8.0); NEUTROPHILS # 3.4 10^3/uL (1.5-8.5); NEUTROPHILS % 58.5 % (36.0-66.0); PLATELET COUNT, AUTOMATED 208 10^3/uL (150-450); RED BLOOD COUNT 3.33 10^6/uL (4.00-5.40); WHITE BLOOD COUNT 5.7 10^3/uL (4.0-10.0)
[2024-10-16 08:38] LABS: ALBUMIN 2.1 G/DL (3.2-5.2); ALKALINE PHOSPHATASE 68 U/L (35-104); ALT/SGPT 19 U/L (7.0-40); AST/SGOT 22 U/L (<34); BILIRUBIN,TOTAL 0.4 MG/DL (0.3-1.2); BLOOD UREA NITROGEN 8 MG/DL (9-23); C REACTIVE PROTEIN QUANTITATIV 18.97 MG/DL (<1.0); CARBON DIOXIDE LEVEL 20 MMOL/L (20-31); CHLORIDE LEVEL 108 MMOL/L (98-107); CREATININE FOR GFR 0.59 MG/DL (0.55-1.30); GLOMERULAR FILTRATION RATE > 60.0 (>51); GLUCOSE, FASTING 195 MG/DL (60-100); MAGNESIUM LEVEL 1.5 MG/DL (1.8-2.4); POTASSIUM SERUM 3.6 MMOL/L (3.5-5.1); SODIUM LEVEL 142 MMOL/L (136-145); TOTAL PROTEIN 5.1 G/DL (5.7-8.2)
[2024-10-16 08:45] LABS: PROCALCITONIN 14.65 ng/ml
[2024-10-16] MEDS: ceFAZolin SOD 2 GM in IV 1 EA IV SCH (12:32)
[2024-10-16] MEDS: MAGNESIUM OXIDE 400MG TAB (MAG-OX) PO SCH (13:27)
[2024-10-16] MEDS: MAG SULF 1GM/100ML (MAG RUN) 1 GM in IV 1 EA IV SCH (13:30)
[2024-10-16] MEDS: OSELTAMIVIR PHOSPHATE 75 MG CAP PO SCH (19:55)
[2024-10-17] VITALS (14 sets, daily range): BP systolic 121–147; BP diastolic 60–74; TEMP 97.5–102.6; O2SAT 92–97
[2024-10-17 06:22] LABS: BASO % 0.4 % (0.0-1.0); EOS % 0.6 % (0.0-3.0); HEMATOCRIT 27.5 % (36.0-47.0); HEMOGLOBIN 9.4 g/dl (12.0-15.5); LYMPH # 1.1 10^3/uL (1.5-5.0); LYMPH % 20.1 % (24.0-44.0); MEAN CORPUSCULAR HEMOGLOBIN 31.8 pg (27.0-33.0); MEAN CORPUSCULAR HGB CONC 34.2 g/dl (32.0-36.5); MEAN CORPUSCULAR VOLUME 92.9 fl (80.0-96.0); MONO # 0.6 10^3/uL (0.0-0.8); MONO % 11.5 % (2.0-8.0); NEUTROPHILS # 3.6 10^3/uL (1.5-8.5); NEUTROPHILS % 66.5 % (36.0-66.0); PLATELET COUNT, AUTOMATED 251 10^3/uL (150-450); RED BLOOD COUNT 2.96 10^6/uL (4.00-5.40); WHITE BLOOD COUNT 5.4 10^3/uL (4.0-10.0)
[2024-10-17 06:52] LABS: BLOOD UREA NITROGEN 7 MG/DL (9-23); C REACTIVE PROTEIN QUANTITATIV 14.42 MG/DL (<1.0); CALCIUM LEVEL 7.6 MG/DL (8.5-10.1); CARBON DIOXIDE LEVEL 22 MMOL/L (20-31); CHLORIDE LEVEL 106 MMOL/L (98-107); CREATININE FOR GFR 0.59 MG/DL (0.55-1.30); GLOMERULAR FILTRATION RATE > 60.0 (>51); GLUCOSE, FASTING 172 MG/DL (60-100); MAGNESIUM LEVEL 1.6 MG/DL (1.8-2.4); POTASSIUM SERUM 3.5 MMOL/L (3.5-5.1); SODIUM LEVEL 143 MMOL/L (136-145)
[2024-10-17 07:04] LABS: PROCALCITONIN 6.84 ng/ml
[2024-10-17] MEDS: MAG SULF 1GM/100ML (MAG RUN) 1 GM in IV 1 EA IV SCH (08:39)
[2024-10-17 12:05] LABS: TOTAL PROTEIN 5.1 G/DL (5.7-8.2)
[2024-10-17 13:31] LABS: PH BODY FLUID 7.243 UNITS (NOT ESTABLISHED); SOURCE, BODY FLUID pH PLEURAL
[2024-10-17 13:36] LABS: PLEURAL FL COLOR YELLOW (COLORLESS); SOURCE, BODY FLUID PLEURAL
[2024-10-17 13:37] LABS: APPEARANCE, BODY FLUID CLEAR (CLEAR)
[2024-10-17 13:54] LABS: SOURCE, BODY FLUID ALBUMIN PLEURAL
[2024-10-17 13:59] LABS: SOURCE, BODY FLUID GLUCOSE PLEURAL; SOURCE, BODY FLUID TRIG PLEURAL; TRIGLYCERIDE, BODY FLUID 61 MG/DL (NOT ESTABLISHED)
[2024-10-17 14:00] LABS: SOURCE, BODY FLUID TOT PROTEIN PLEURAL; TOTAL PROTEIN, BODY FLUID 3.3 G/DL (NOT ESTABLISHED)
[2024-10-17 14:02] LABS: AMYLASE, BODY FLUID 26 U/L (NOT ESTABLISHED); CHOLESTEROL, BODY FLUID 60 MG/DL (NOT ESTABLISHED); SOURCE, BODY FLUID AMYLASE PLEURAL; SOURCE, BODY FLUID CHOL PLEURAL
[2024-10-17 14:11] LABS: LDH, BODY FLUID > 750 U/L (NOT ESTABLISHED); SOURCE, BODY FLUID LDH PLEURAL
[2024-10-17] MEDS ORDERED: ALTEPLASE 2MG/2ML VIAL XX ONE (14:15)
[2024-10-17] MEDS: FERROUS SULFATE 325MG TAB PO SCH (14:46)
[2024-10-17] MEDS: ALTEPLASE 10MG IN NS 60ML SYRINGE INTRAPLEU ONE (15:08)
[2024-10-17] MEDS: MORPHINE 2 MG/ML 1ML VIAL IV PRN (15:42)
[2024-10-17] MEDS: PERCOCET 5MG/325MG TAB PO PRN (18:46)
[2024-10-18] VITALS (7 sets, daily range): BP systolic 111–135; BP diastolic 51–79; TEMP 97.7–102.8; O2SAT 93–97
[2024-10-18 06:01] LABS: BASO % 0.2 % (0.0-1.0); EOS % 0.5 % (0.0-3.0); HEMATOCRIT 28.7 % (36.0-47.0); HEMOGLOBIN 9.6 g/dl (12.0-15.5); LYMPH # 1.2 10^3/uL (1.5-5.0); LYMPH % 19.9 % (24.0-44.0); MEAN CORPUSCULAR HEMOGLOBIN 31.1 pg (27.0-33.0); MEAN CORPUSCULAR HGB CONC 33.4 g/dl (32.0-36.5); MEAN CORPUSCULAR VOLUME 92.9 fl (80.0-96.0); MONO # 0.5 10^3/uL (0.0-0.8); MONO % 7.6 % (2.0-8.0); NEUTROPHILS # 4.3 10^3/uL (1.5-8.5); NEUTROPHILS % 70.8 % (36.0-66.0); PLATELET COUNT, AUTOMATED 326 10^3/uL (150-450); RED BLOOD COUNT 3.09 10^6/uL (4.00-5.40)
[2024-10-18 06:29] LABS: BLOOD UREA NITROGEN 9 MG/DL (9-23); C REACTIVE PROTEIN QUANTITATIV 12.91 MG/DL (<1.0); CALCIUM LEVEL 7.3 MG/DL (8.5-10.1); CARBON DIOXIDE LEVEL 24 MMOL/L (20-31); CHLORIDE LEVEL 104 MMOL/L (98-107); GLOMERULAR FILTRATION RATE > 60.0 (>51); GLUCOSE, FASTING 160 MG/DL (60-100); MAGNESIUM LEVEL 1.6 MG/DL (1.8-2.4); POTASSIUM SERUM 3.7 MMOL/L (3.5-5.1); SODIUM LEVEL 141 MMOL/L (136-145)
[2024-10-18] MEDS: MAG SULF 1GM/100ML (MAG RUN) 1 GM in IV 1 EA IV SCH (07:36)
[2024-10-18] MEDS: MAGNESIUM OXIDE 400MG TAB (MAG-OX) PO SCH (08:27)
[2024-10-19] VITALS (10 sets, daily range): BP systolic 115–132; BP diastolic 55–61; TEMP 97.2–101.7; O2SAT 91–96
[2024-10-19 05:13] LABS: BASO % 0.3 % (0.0-1.0); EOS # 0.1 10^3/uL (0.0-0.5); EOS % 0.7 % (0.0-3.0); HEMATOCRIT 26.6 % (36.0-47.0); HEMOGLOBIN 9.3 g/dl (12.0-15.5); LYMPH # 1.3 10^3/uL (1.5-5.0); LYMPH % 17.1 % (24.0-44.0); MEAN CORPUSCULAR HEMOGLOBIN 32.3 pg (27.0-33.0); MEAN CORPUSCULAR VOLUME 92.4 fl (80.0-96.0); MONO # 0.5 10^3/uL (0.0-0.8); MONO % 6.3 % (2.0-8.0); NEUTROPHILS # 5.6 10^3/uL (1.5-8.5); NEUTROPHILS % 74.9 % (36.0-66.0); PLATELET COUNT, AUTOMATED 424 10^3/uL (150-450); RED BLOOD COUNT 2.88 10^6/uL (4.00-5.40); WHITE BLOOD COUNT 7.4 10^3/uL (4.0-10.0)
[2024-10-19 05:36] LABS: BLOOD UREA NITROGEN 7 MG/DL (9-23); C REACTIVE PROTEIN QUANTITATIV 11.98 MG/DL (<1.0); CALCIUM LEVEL 7.5 MG/DL (8.5-10.1); CARBON DIOXIDE LEVEL 25 MMOL/L (20-31); CHLORIDE LEVEL 107 MMOL/L (98-107); CREATININE FOR GFR 0.49 MG/DL (0.55-1.30); GLOMERULAR FILTRATION RATE > 60.0 (>51); GLUCOSE, FASTING 177 MG/DL (60-100); MAGNESIUM LEVEL 1.6 MG/DL (1.8-2.4); POTASSIUM SERUM 3.7 MMOL/L (3.5-5.1); SODIUM LEVEL 141 MMOL/L (136-145)
[2024-10-19] MEDS: MAG SULF 1GM/100ML (MAG RUN) 1 GM in IV 1 EA IV SCH (08:42)
[2024-10-19] MEDS ORDERED: ALTEPLASE 2MG/2ML VIAL XX ONE (08:45)
[2024-10-19] MEDS: ALTEPLASE 10MG IN NS 60ML SYRINGE INTRAPLEU ONE (09:45)
[2024-10-20] VITALS (8 sets, daily range): BP systolic 114–132; BP diastolic 55–61; TEMP 98.9–102; O2SAT 93–95
[2024-10-20 04:46] LABS: BASO % 0.4 % (0.0-1.0); EOS # 0.1 10^3/uL (0.0-0.5); EOS % 0.9 % (0.0-3.0); HEMATOCRIT 25.3 % (36.0-47.0); HEMOGLOBIN 8.4 g/dl (12.0-15.5); LYMPH # 1.3 10^3/uL (1.5-5.0); LYMPH % 16.1 % (24.0-44.0); MEAN CORPUSCULAR HEMOGLOBIN 31.2 pg (27.0-33.0); MEAN CORPUSCULAR HGB CONC 33.2 g/dl (32.0-36.5); MEAN CORPUSCULAR VOLUME 94.1 fl (80.0-96.0); MONO # 0.5 10^3/uL (0.0-0.8); MONO % 5.7 % (2.0-8.0); PLATELET COUNT, AUTOMATED 501 10^3/uL (150-450); RED BLOOD COUNT 2.69 10^6/uL (4.00-5.40); WHITE BLOOD COUNT 7.9 10^3/uL (4.0-10.0)
[2024-10-20 05:09] LABS: BLOOD UREA NITROGEN 7 MG/DL (9-23); C REACTIVE PROTEIN QUANTITATIV 10.55 MG/DL (<1.0); CALCIUM LEVEL 7.6 MG/DL (8.5-10.1); CARBON DIOXIDE LEVEL 26 MMOL/L (20-31); CHLORIDE LEVEL 105 MMOL/L (98-107); CREATININE FOR GFR 0.52 MG/DL (0.55-1.30); GLOMERULAR FILTRATION RATE > 60.0 (>51); GLUCOSE, FASTING 183 MG/DL (60-100); MAGNESIUM LEVEL 1.6 MG/DL (1.8-2.4); POTASSIUM SERUM 3.9 MMOL/L (3.5-5.1); SODIUM LEVEL 143 MMOL/L (136-145)
[2024-10-20 08:06] LABS: PROCALCITONIN 1.07 ng/ml
[2024-10-20] MEDS: MAG SULF 1GM/100ML (MAG RUN) 1 GM in IV 1 EA IV SCH (08:46)
[2024-10-21] VITALS (11 sets, daily range): BP systolic 107–132; BP diastolic 55–63; TEMP 98.9–100.8; O2SAT 93–98
[2024-10-21 00:43] LABS: IgG Subclass 4 24.2 mg/dL (4.0-86.0)
[2024-10-21 07:23] LABS: BASO % 0.3 % (0.0-1.0); EOS # 0.1 10^3/uL (0.0-0.5); EOS % 1.7 % (0.0-3.0); HEMATOCRIT 23.4 % (36.0-47.0); HEMOGLOBIN 7.8 g/dl (12.0-15.5); LYMPH # 1.3 10^3/uL (1.5-5.0); LYMPH % 19.8 % (24.0-44.0); MEAN CORPUSCULAR HEMOGLOBIN 31.7 pg (27.0-33.0); MEAN CORPUSCULAR HGB CONC 33.3 g/dl (32.0-36.5); MEAN CORPUSCULAR VOLUME 95.1 fl (80.0-96.0); MONO # 0.4 10^3/uL (0.0-0.8); MONO % 6.2 % (2.0-8.0); NEUTROPHILS # 4.8 10^3/uL (1.5-8.5); NEUTROPHILS % 71.2 % (36.0-66.0); PLATELET COUNT, AUTOMATED 540 10^3/uL (150-450); RED BLOOD COUNT 2.46 10^6/uL (4.00-5.40); WHITE BLOOD COUNT 6.7 10^3/uL (4.0-10.0)
[2024-10-21 07:51] LABS: BLOOD UREA NITROGEN 6 MG/DL (9-23); C REACTIVE PROTEIN QUANTITATIV 8.26 MG/DL (<1.0); CALCIUM LEVEL 7.5 MG/DL (8.5-10.1); CARBON DIOXIDE LEVEL 28 MMOL/L (20-31); CHLORIDE LEVEL 106 MMOL/L (98-107); CREATININE FOR GFR 0.53 MG/DL (0.55-1.30); GLOMERULAR FILTRATION RATE > 60.0 (>51); GLUCOSE, FASTING 172 MG/DL (60-100); MAGNESIUM LEVEL 1.8 MG/DL (1.8-2.4); POTASSIUM SERUM 4.2 MMOL/L (3.5-5.1); SODIUM LEVEL 143 MMOL/L (136-145)
[2024-10-21] MEDS: FUROSEMIDE 40MG/4ML VIAL IV ONE (10:42)
[2024-10-21] MEDS: MIDAZOLAM INJ 2MG/2ML VIAL IV ONE (11:13)
[2024-10-21] MEDS ORDERED: flumazeniL 0.5MG/5ML VIAL As Ordered ONE (11:16)
[2024-10-21] MEDS: flumazeniL 0.5MG/5ML VIAL IV STA (11:19)
[2024-10-22 01:13] VITALS: BP 117/59; TEMP 100.7; O2SAT 93
[2024-10-22 05:06] VITALS: BP 102/74; TEMP 99.9; O2SAT 100
[2024-10-22 06:12] LABS: BASO % 0.4 % (0.0-1.0); EOS # 0.1 10^3/uL (0.0-0.5); EOS % 1.5 % (0.0-3.0); HEMATOCRIT 24.6 % (36.0-47.0); HEMOGLOBIN 8.1 g/dl (12.0-15.5); LYMPH # 1.6 10^3/uL (1.5-5.0); LYMPH % 23.1 % (24.0-44.0); MEAN CORPUSCULAR HEMOGLOBIN 31.5 pg (27.0-33.0); MEAN CORPUSCULAR HGB CONC 32.9 g/dl (32.0-36.5); MEAN CORPUSCULAR VOLUME 95.7 fl (80.0-96.0); MONO # 0.5 10^3/uL (0.0-0.8); MONO % 7.2 % (2.0-8.0); NEUTROPHILS # 4.6 10^3/uL (1.5-8.5); NEUTROPHILS % 67.2 % (36.0-66.0); RED BLOOD COUNT 2.57 10^6/uL (4.00-5.40); WHITE BLOOD COUNT 6.9 10^3/uL (4.0-10.0)
[2024-10-22 06:17] LABS: PLATELET COUNT, AUTOMATED 656 10^3/uL (150-450)
[2024-10-22 06:27] LABS: C REACTIVE PROTEIN QUANTITATIV 6.68 MG/DL (<1.0)
[2024-10-22 06:28] LABS: BLOOD UREA NITROGEN 5 MG/DL (9-23); CALCIUM LEVEL 7.9 MG/DL (8.5-10.1); CARBON DIOXIDE LEVEL 28 MMOL/L (20-31); CHLORIDE LEVEL 106 MMOL/L (98-107); CREATININE FOR GFR 0.57 MG/DL (0.55-1.30); GLOMERULAR FILTRATION RATE > 60.0 (>51); GLUCOSE, FASTING 186 MG/DL (60-100); MAGNESIUM LEVEL 1.8 MG/DL (1.8-2.4); POTASSIUM SERUM 4.5 MMOL/L (3.5-5.1); SODIUM LEVEL 143 MMOL/L (136-145)
[2024-10-22 08:00] VITALS: BP 130/69; TEMP 99.8; O2SAT 94
[2024-10-22] MEDS: FUROSEMIDE 40MG/4ML VIAL IV ONE (11:08)
[2024-10-22 12:22] VITALS: BP 124/59; TEMP 98.2; O2SAT 95
[2024-10-22] MEDS ORDERED: MAGN400T2 PO (13:52)
[2024-10-22] MEDS ORDERED: MUCI600T31 PO (13:52)
[2024-10-22] MEDS ORDERED: CEPH500C PO ×2 (13:52→13:56)
[2024-10-22] MEDS ORDERED: RISATAB3 PO (13:52)
[2024-10-22] MEDS ORDERED: LASI20TA3 PO (13:52)
== END 2024-10-22 15:36 | disposition home or self-care (01) | DRG 137 ==
LOC: M ED 13:31 → M ED INP 16:13 → M PCU 16:47
PROVIDERS: ADMIT Internal Medicine; ATTEND Internal Medicine
PROC: 0W9B30Z Drainage of Left Pleural Cavity with Drainage Device, Percutaneous Approach (ICD-10-PCS; 2024-10-17)
PROC: 3E0L3GC Introduction of Other Therapeutic Substance into Pleural Cavity, Percutaneous Approach (ICD-10-PCS; principal; 2024-10-17 13:00)
PROC: 3E0L3GC Introduction of Other Therapeutic Substance into Pleural Cavity, Percutaneous Approach (ICD-10-PCS; 2024-10-19)
PROC: B246ZZZ Ultrasonography of Right and Left Heart (ICD-10-PCS; 2024-10-19)
DX: J15.211 Pneumonia due to Methicillin susceptible Staphylococcus aureus (principal); J85.0 Gangrene and necrosis of lung; J91.8 Pleural effusion in other conditions classified elsewhere; E87.20 Acidosis, unspecified; E11.9 Type 2 diabetes mellitus without complications; D50.9 Iron deficiency anemia, unspecified; E88.09 Other disorders of plasma-protein metabolism, not elsewhere classified; E83.42 Hypomagnesemia; E78.5 Hyperlipidemia, unspecified; D72.819 Decreased white blood cell count, unspecified; Z79.82 Long term (current) use of aspirin; Z79.4 Long term (current) use of insulin; Z79.899 Other long term (current) drug therapy; Z88.2 Allergy status to sulfonamides; Z88.8 Allergy status to other drugs, medicaments and biological substances; Z91.048 Other nonmedicinal substance allergy status

== ENCOUNTER → 2024-11-06 | Outpatient (CLI) | payer OTHER ==
[~2024-11-06] MED LIST changes: +AMOX500C PO; +CEPH500C PO; +LASI20TA3 PO; +MAGN400T2 PO; +MUCI600T31 PO; +RISATAB3 PO
[2024-11-06 14:24] LABS: BASO % 0.4 % (0.0-1.0); EOS # 0.2 10^3/uL (0.0-0.5); EOS % 2.3 % (0.0-3.0); HEMATOCRIT 35.5 % (36.0-47.0); HEMOGLOBIN 11.4 g/dl (12.0-15.5); LYMPH # 2.6 10^3/uL (1.5-5.0); LYMPH % 29.1 % (24.0-44.0); MEAN CORPUSCULAR HEMOGLOBIN 31.8 pg (27.0-33.0); MEAN CORPUSCULAR HGB CONC 32.1 g/dl (32.0-36.5); MEAN CORPUSCULAR VOLUME 99.2 fl (80.0-96.0); MONO # 0.5 10^3/uL (0.0-0.8); MONO % 5.6 % (2.0-8.0); NEUTROPHILS # 5.6 10^3/uL (1.5-8.5); NEUTROPHILS % 62.2 % (36.0-66.0); PLATELET COUNT, AUTOMATED 406 10^3/uL (150-450); RED BLOOD COUNT 3.58 10^6/uL (4.00-5.40)
[2024-11-06 14:30] LABS: ERYTHROCYTE SEDIMENTATION RATE 16 mm/hr (0-30)
[2024-11-06 14:56] LABS: IMMUNOGLOBULIN A 140.1 MG/DL (40-350); IMMUNOGLOBULIN G 737 MG/DL (650-1600)
[2024-11-06 15:01] LABS: IMMUNOGLOBULIN M 83.8 MG/DL (50-300)
[2024-11-06 15:09] LABS: ALBUMIN 3.3 G/DL (3.2-5.2); ALKALINE PHOSPHATASE 77 U/L (35-104); ALT/SGPT 32 U/L (7.0-40); AST/SGOT 30 U/L (<34); BILIRUBIN,TOTAL 0.3 MG/DL (0.3-1.2); BLOOD UREA NITROGEN 15 MG/DL (9-23); CALCIUM LEVEL 9.6 MG/DL (8.5-10.1); CARBON DIOXIDE LEVEL 29 MMOL/L (20-31); CHLORIDE LEVEL 102 MMOL/L (98-107); CREATININE FOR GFR 0.61 MG/DL (0.55-1.30); GLOMERULAR FILTRATION RATE > 60.0 (>51); GLUCOSE, FASTING 95 MG/DL (60-100); POTASSIUM SERUM 4.1 MMOL/L (3.5-5.1); SODIUM LEVEL 143 MMOL/L (136-145); TOTAL PROTEIN 6.7 G/DL (5.7-8.2)
[2024-11-06 15:28] LABS: IMMUNOGLOBULIN E 12.5 IU/ML (0-378)
== END ==
LOC: M PLALAB 11:27
PROVIDERS: ATTEND Allergy & Immunology Allergy
DX: D84.9 Immunodeficiency, unspecified (principal)

== ENCOUNTER → 2024-11-06 | Outpatient (CLI) | payer OTHER | LOC: M PLAIMG 08:31 | PROVIDERS: ATTEND Internal Medicine Infectious Disease | DX: J15.211 Pneumonia due to Methicillin susceptible Staphylococcus aureus (principal) ==

== ENCOUNTER → 2024-12-10 | Outpatient (REF) | payer OTHER | LOC: M LAB REF 12:14 | PROVIDERS: ATTEND Internal Medicine | DX: E11.9 Type 2 diabetes mellitus without complications (principal) ==

== ENCOUNTER → 2024-12-10 | Outpatient (CLI) | payer OTHER | LOC: M PLAIMG 07:48 | PROVIDERS: ATTEND Internal Medicine Critical Care Medicine | DX: J18.9 Pneumonia, unspecified organism (principal) ==

== ENCOUNTER → 2024-12-27 | Outpatient (CLI) | payer OTHER | LOC: M PLALAB 10:16 | PROVIDERS: ATTEND Allergy & Immunology Allergy | DX: D80.1 Nonfamilial hypogammaglobulinemia (principal) ==

== ENCOUNTER → 2025-05-30 | Outpatient (CLI) | payer OTHER ==
[2025-05-30 13:19] LABS: BASO # 0.0 10^3/uL (0.0-0.2); BASO % 0.5 % (0.0-1.0); EOS # 0.1 10^3/uL (0.0-0.5); EOS % 3.7 % (0.0-3.0); LYMPH # 1.6 10^3/uL (1.5-5.0); LYMPH % 43.3 % (24.0-44.0); MONO # 0.4 10^3/uL (0.0-0.8); MONO % 9.9 % (2.0-8.0); NEUTROPHILS # 1.6 10^3/uL (1.5-8.5); NEUTROPHILS % 42.3 % (36.0-66.0); PLATELET COUNT, AUTOMATED 219 10^3/uL (150-450)
== END ==
LOC: M PLALAB 10:12
PROVIDERS: ATTEND Nurse Practitioner Family
DX: D80.6 Antibody deficiency with near-normal immunoglobulins or with hyperimmunoglobulinemia (principal)